=== PATIENT | male | born 1945 | race Caucasian/White ===

== ENCOUNTER 2018-12-28 18:00 | Inpatient (IN) | payer MEDICARE, BC ==
[~2018-12-28] VITALS: Ht 182.9 cm; Wt 132.0 kg
--- OUTSIDE RECORDS SUMMARY | 2018-12-28 18:02 | XMS REPORT | Clinical Summary ---
Author Author [facility] Address Unknown Phone Unavailable Care Team Providers Care Manager Park Name Role Phone Cameron Arellano MD PCP Allergies Comments Active Allergy Reactions Severity Noted Date No Known Drug Allergies 01/24/2016 Medications End Date Status Medication Sig Dispensed Refills Start Date 01/10/2019 Active sulfamethoxazole-trimetho Take 1 tablet 28 tablet 0 prim (BACTRIM DS) 800-160 by mouth 2 9 mg per tablet (two) times a day for 14 days. Active albuterol (VENTOLIN HFA) Inhale 2 18 g 3 90 mcg/actuation inhaler puffs every 6 9 (six) hours as needed for wheezing. 09/30/2018 Discontinued albuterol sulfate (PROAIR Inhale 2 1 each 3 RESPICLICK) 90 puffs 4 6 mcg/actuation aerosol (four) times powdr breath activated a day as needed (wheezing). 09/30/2018 Discontinued azelastine (ASTELIN) 137 1 spray into 30 mL 0 mcg (0.1 %) nasal spray each nostril 7 2 (two) times a day. Use in each nostril as directed 12/27/2018 Discontinued NIFEdipine XL (PROCARDIA Take 1 tablet 30 tablet 1 XL) 30 MG 24 hr tablet (30 mg total) 9 by mouth daily. Active Problems Problem Noted Date Psoriasis 09/30/2018 Benign essential HTN 09/30/2018 Overview: Will resume CCB which he took in the past and monitor. 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 Prostate cancer 06/01/2002 Blanco's syndrome EARLENE (obstructive sleep apnea) Overview: not tolerating CPAP COPD (chronic obstructive pulmonary disease) Back pain Overview: DJD Encounters Care Team Description Date Type Specialty Cameron Arellano MD 12/28/2018 Telephone Internal Medicine Cameron Arellano MD Benign essential HTN; Blanco's syndrome (HCC); Hematuria, unspecified type 12/27/2018 Lab Lab Cameron Arellano MD Hematuria, unspecified type (Primary Dx); Abdominal pain, unspecified abdominal location; Blanco's syndrome (HCC); Benign essential HTN; Other emphysema (HCC) 12/27/2018 Office Visit Internal Medicine Ade Bansal RN 12/27/2018 Telephone Access Ade Bansal RN 12/27/2018 Nurse Triage Access Cameron Arellano MD Benign essential HTN; Polyp of colon, unspecified part of colon, unspecified type; Routine general medical examination at a health care facility 09/30/2018 Lab Lab Cameron Arellano MD Routine general medical examination at a health care facility (Primary Dx); Benign essential HTN; Blanco's syndrome (HCC); Prostate cancer (HCC); Other emphysema (HCC); Polyp of colon, unspecified part of colon, unspecified type; Psoriasis 09/30/2018 Office Visit Internal Medicine after 12/27/2017 Immunizations Name Dates Previously Given Next Due Pneumococcal Conjugate 12/09/2016 13-Valent Family History Medical History Relation Name Comments Alzheimer's disease Mother Relation Name Status Comments Mother Social History Date Tobacco Use Types Packs/Day Years Used Current Every Day Smoker Cigarettes 0.5 50 Smokeless Tobacco: Never Used Comments: 10 cigs a day Alcohol Use Drinks/Week oz/Week Comments No Sex Assigned at Date Recorded Not on file Industry Job Start Date Occupation Not on file Not on file Not on file Travel End Travel History Travel Start No recent travel history available. Last Filed Vital Signs Time Taken Vital Sign Reading 12/27/2018 1:50 PM CDT Blood Pressure 142/79 12/27/2018 1:50 PM CDT Pulse 90 12/27/2018 1:50 PM CDT Temperature 37.1 C (98.7 F) 12/27/2018 1:50 PM CDT Respiratory Rate 16 12/27/2018 1:50 PM CDT Oxygen Saturation 95% - Inhaled Oxygen - Concentration 12/27/2018 1:50 PM CDT Weight 127 kg (280 lb) 12/27/2018 1:50 PM CDT Height 182.9 cm (6') 12/27/2018 1:50 PM CDT Body Mass Index 37.97 Plan of Treatment Care Team Description Date Type Specialty Cameron Arellano MD [address] [facility] [address] [place] [address] [phone] 01/10/2019 Office Visit Internal Medicine Health Maintenance Due Date Last Done Comments SHINGLES VACCINES (#1) 1997 COLONOSCOPY SCREENING 06/01/2016 06/01/2006 65+ PNEUMOCOCCAL VACCINE 12/09/2017 12/09/2016 (2 of 2 - PPSV23) INFLUENZA VACCINE 12/30/2018 Procedures Comments Procedure Name Priority Date/Time Associated Diagnosis URINALYSIS, AUTOMATED Routine 12/27/2018 Hematuria, unspecified WITH MICROSCOPY 2:13 PM CDT type HEPATIC FUNCTION PANEL Routine 12/27/2018 Blanco's syndrome (HCC) 2:13 PM CDT CBC WITH PLATELET AND Routine 12/27/2018 Blanco's syndrome (HCC) DIFFERENTIAL 2:13 PM CDT BASIC METABOLIC PANEL Routine 12/27/2018 Benign essential HTN 2:13 PM CDT URINALYSIS, AUTOMATED Routine 09/30/2018 Benign essential HTN WITH MICROSCOPY 2:07 PM CDT PROSTATE SPECIFIC ANTIGEN Routine 09/30/2018 Routine general medical 2:07 PM CDT examination at a health care facility LIPID PANEL Routine 09/30/2018 Benign essential HTN 2:07 PM CDT HEPATIC FUNCTION PANEL Routine 09/30/2018 Benign essential HTN 2:07 PM CDT CBC WITH PLATELET AND Routine 09/30/2018 Polyp of colon, DIFFERENTIAL 2:07 PM CDT unspecified part of colon, unspecified type BASIC METABOLIC PANEL Routine 09/30/2018 Benign essential HTN 2:07 PM CDT after 12/27/2017 Results * Urinalysis, automated with microscopy (12/27/2018 2:13 PM CDT) Only the most recent of 2 results within the time period is included. Pathologist [facility] Color, UA DARK YELLOW YELLOW [facility] Appearance TURBID (A) CLEAR [facility] Specific 1.017 1.001 - 1.035 [facility] gravity, urine [facility] pH, urine < OR=5.0 5.0 - 8.0 [facility] [place] Glucose, urine NEGATIVE NEGATIVE [facility] Bilirubin, UA NEGATIVE NEGATIVE [facility] Ketones, UA NEGATIVE NEGATIVE [facility] Occult blood, 3+ (A) NEGATIVE [facility] Protein, UA 2+ (A) NEGATIVE [facility] Nitrite, UA POSITIVE (A) NEGATIVE [facility] Leukocyte 3+ (A) NEGATIVE [facility] esterase, UA [facility] [place] WBC, UA > OR=60 (A) < OR=5 /HPF [facility] RBC, UA > OR=60 (A) < OR=2 /HPF [facility] [place] Squamous 0-5 < OR=5 /HPF [facility] epithelial [facility] cells, UA [facility] Bacteria, UA MODERATE (A) NONE SEEN /HPF [facility] [place] Hyaline casts, NONE SEEN NONE SEEN /LPF [facility] UA [facility] [place] Specimen Blood Resulting Agency Comment Performing Organization Information: Site ID: [id number] Name: [facility] Address: [address] [place] [id number] Director: Armin Mcclure Performing Organization Address City/State/Zipcode Phone Number [facility] [place] [address] [place], [place] [id number] * CBC with platelet and differential (12/27/2018 2:13 PM CDT) Only the most recent of 2 results within the time period is included. Pathologist [facility] WBC 11.6 (H) 3.8 - 10.8 [facility] Thousand/uL [facility] [place] RBC 5.78 4.20 - 5.80 [facility] Million/uL [place] [place] HGB 16.3 13.2 - 17.1 g/dL [facility] HCT 49.6 38.5 - 50.0 % [facility] MCV 85.8 80.0 - 100.0 fL [facility] MCH 28.2 27.0 - 33.0 pg [facility] MCHC 32.9 32.0 - 36.0 g/dL [facility] RDW 14.5 11.0 - 15.0 % [facility] [place] Platelet count 246 140 - 400 [facility] Thousand/uL [facility] MPV 9.7 7.5 - 12.5 fL [facility] [place] Neutrophils, 8,665 (H) 1,500 - 7,800 [facility] absolute cells/uL [facility] Lymphocytes, 1,868 850 - 3,900 cells/uL [facility] Monocytes, 974 (H) 200 - 950 cells/uL [facility] absolute [facility] Eosinophils, 35 15 - 500 cells/uL [facility] [place] Basophils, 58 0 - 200 cells/uL [facility] absolute [facility] [place] Neutrophils 74.7 % [facility] Lymphocytes 16.1 % [facility] [place] Monocytes 8.4 % [facility] Eosinophils 0.3 % [facility] [place] Basophils + RC 0.5 % [facility] [place] Specimen Blood Resulting Agency Comment Performing Organization Information: Site ID: [id number] Name: [facility] Address: [address] [place] [phone] Director: Armin Mcclure Performing Organization Address City/State/Zipcode Phone Number [facility] [employer] [address] [address] * Hepatic function panel (12/27/2018 2:13 PM CDT) Only the most recent of 2 results within the time period is included. Protein 6.9 6.1 - 8.1 g/dL [facility] [place] Albumin, S 3.8 3.6 - 5.1 g/dL [facility] Globulin, total 3.1 1.9 - 3.7 g/dL [facility] (calc) [facility] Albumin/globuli 1.2 1.0 - 2.5 (calc) [facility] n ratio [facility] Total bilirubin 1.3 (H) 0.2 - 1.2 mg/dL [facility] [place] Bilirubin 0.3 (H) < OR=0.2 mg/dL [facility] direct [facility] [place] Bilirubin, 1.0 0.2 - 1.2 mg/dL [facility] indirect (calc) [facility] Alkaline 65 40 - 115 U/L [facility] phosphatase [facility] AST 11 10 - 35 U/L [facility] ALT 13 9 - 46 U/L [facility] Specimen Blood Resulting Agency Comment Performing Organization Information: Site ID: [id number] Name: [facility] Address: [address] [place] [phone] Director: Armin Mcclure Performing Organization Address [facility] Cent[facility]ode [place] [address] * Basic metabolic panel (12/27/2018 2:13 PM CDT) Only the most recent of 2 results within the time period is included. Pathologist [facility] Glucose 106 (H) 65 - 99 mg/dL [facility] Comment: DIAGNOSTICS Fasting [place] reference interval For someone without known diabetes, a glucose value between 100 and 125 mg/dL is consistent with prediabetes and should be confirmed with a follow-up test. BUN 20 7 - 25 mg/dL [employer] [facility] Creatinine 1.14 0.70 - 1.18 mg/dL [facility] Comment: DIAGNOSTICS For patients >49 years of age, [place] the reference limit for Creatinine is approximately 13% higher for people identified as -Mongolian. EGFR Non-Afr. 64 > OR=60 [facility] Mongolian mL/min/1.73m2 [facility] [place] EGFR 75 > OR=60 [facility] Mongolian mL/min/1.73m2 [facility] BUN/creatinine NOT APPLICABLE 6 - 22 (calc) [facility] ratio [facility] Sodium 139 135 - 146 mmol/L [employer] [facility] Potassium 4.2 3.5 - 5.3 mmol/L [facility] Chloride 101 98 - 110 mmol/L [employer] [place] CO2 27 20 - 32 mmol/L [employer] [facility] Calcium 9.3 8.6 - 10.3 mg/dL [employer] [facility] Specimen Blood Resulting Agency Comment Performing Organization Information: Site ID: [id number] Name: [facility] Address: [address] [place] [phone] Director: Armin Mcclure Performing Organization Address [facility]/Zipcode Phone Number [facility] [address] [place] [phone] * Prostate specific antigen (09/30/2018 2:07 PM CDT) [facility] PSA <0.1 < OR=4.0 ng/mL [facility] Comment: DIAGNOSTICS The total PSA value from this [facility] assay system is standardized against the WHO standard. The test result will be approximately 20% lower when compared to the equimolar-standardized total PSA (David Rebeka). Comparison of serial PSA results should be interpreted with this fact in mind. This test was performed using the Siemens chemiluminescent method. Values obtained from different assay methods cannot be used interchangeably. PSA levels, regardless of value, should not be interpreted as absolute evidence of the presence or absence of disease. Specimen Blood Resulting Agency Comment Performing Organization Information: Site ID: [id number]: [facility] Address: [address] [place] [id number] Director: Jennifer Arias Performing Organization Address City/State/Zipcode Phone Number [facility] [place] [address] * Lipid panel (09/30/2018 2:07 PM CDT) [facility] Cholesterol, 165 <200 mg/dL [facility] total [facility] HDL cholesterol 43 >40 mg/dL [facility] Triglycerides 149 <150 mg/dL [facility] LDL cholesterol 97 mg/dL (calc) [facility] calculated Comment: DIAGNOSTICS Reference range: <100 [place] Desirable range <100 mg/dL for primary prevention; <70 mg/dL for patients with CHD or diabetic patients with > or=2 CHD risk factors. LDL-C is now calculated using the Dave-Rayray calculation, which is a validated novel method providing better accuracy than the Friedewald equation in the estimation of LDL-C. Dave SS et al. KECIA. 2013;310(19): 3625-2586 (http://education.D.[employer].com/faq/ONF625) Cholesterol/HDL 3.8 <5.0 (calc) [facility] ratio [facility] [place] Non-HDL 122 <130 mg/dL (calc) [facility] cholesterol Comment: DIAGNOSTICS For patients with diabetes [place] plus 1 major ASCVD risk factor, treating to a non-HDL-C goal of <100 mg/dL (LDL-C of <70 mg/dL) is considered a therapeutic option. Specimen Blood Resulting Agency Comment Performing Organization Information: Site ID: [id number] Name: [facility] Address: [address] [place] [phone] Director: Jennifer Arias Performing Organization Address City/State/Zipcode Phone Number [facility] [employer] [place] [address] [place] [phone] after 12/27/2017 Insurance Type Payer Benefit Subscriber ID Effective Phone Address Plan / Dates Group Medicare MEDICARE MEDICARE xxxxxxxxxxx 2004-P [place], PART A AND resent [place] B Indemnity BCBS BCBS xxxxxxxxxxxx 2015-P PAR/TRAD resent PLAN Advance Directives Patient has advance care planning documents on file. For more information, nikunj gallagher contact: Yifan Gallagher [address] [place] [address]
[2018-12-28] MEDS ORDERED: MORPHINE SULFATE 2 MG/ML SYR 1ML IV STA (18:18)
[2018-12-28] MEDS ORDERED: ONDANSETRON HCL INJ 2MG/ML 2ML 2 MG/ML VIAL IV NR (18:30)
[2018-12-28] MEDS ORDERED: SODIUM CHLORIDE 0.9% 1000ML 1,000 ML IV ONE (18:30)
[2018-12-28] MEDS ORDERED: ONDANSETRON HCL INJ 2MG/ML 2ML 2 MG/ML VIAL ONE (19:02)
[2018-12-28] MEDS ORDERED: MORPHINE SULFATE INJ 4 MG/ML INJ 1ML ONE (19:02)
[2018-12-28] MEDS ORDERED: SODIUM CHLORIDE 0.9% 1000ML 1,000 ML ONE (19:02)
--- NOTE | 2018-12-28 19:09 | NUR ---
report to MERLE Frank
--- NOTE | 2018-12-28 19:26 | Diagnostic Imaging Report ---
EXAM: CT of the abdomen and pelvis WITHOUT contrast HISTORY: Fever, low back pain, nausea and vomiting COMPARISON: None available. TECHNIQUE: The abdomen and pelvis were scanned utilizing a multidetector helical scanner. Coronal and sagittal reformats are available. PROTOCOL: Routine IV CONTRAST: None, which limits sensitivity and specificity of evaluation of the soft tissues and vascular structures. ORAL CONTRAST: None, which limits sensitivity and specificity of evaluation of the bowel. RADIATION DOSE: Total DLP: 843.08 mGy*cm Estimated effective dose: (DLP x 0.015 x size factor) Dose modulation, iterative reconstruction, and/or weight based adjustment of the mA/kV was utilized to reduce the radiation dose to as low as reasonably achievable. COMPLICATIONS: None FINDINGS: LOWER THORAX: Unremarkable. HEPATOBILIARY: Diffusely decreased attenuation of the liver. No definite focal hepatic lesions. No biliary ductal dilatation. The gallbladder is unremarkable. SPLEEN: No splenomegaly. PANCREAS: No focal masses or ductal dilatation. Diffuse parenchymal atrophy. ADRENALS: No adrenal nodule. KIDNEYS/URETERS: No hydronephrosis, stones, or solid mass lesion identified. Nonspecific perinephric fat stranding. PELVIC ORGANS/BLADDER: The urinary bladder is predominantly decompressed, which limits evaluation. PERITONEUM / RETROPERITONEUM: No free air or fluid. GI TRACT: On limited evaluation of the gastrointestinal tract, no dilation or wall thickening identified. The appendix appears normal. Scattered colonic diverticuli, most notably the sigmoid colon, without evidence of acute diverticulitis. LYMPH NODES: No pathologically enlarged lymph nodes. VESSELS: Diffuse scattered atherosclerotic vascular calcifications. BONES and JOINTS: No aggressive osseous lesion or acute fracture. SOFT TISSUES: Small fat-containing umbilical hernia, without associated inflammatory changes. IMPRESSION: 1. Mild nonspecific bilateral perinephric fat stranding, correlate for urinary tract infection. 2. Colonic diverticulosis. 3. Hepatic steatosis. Signed by: Dr. Kulwant Avitia D.O., M.M.M. on 12/28/2018 7:22 PM
[2018-12-28] MEDS ORDERED: CEFTRIAXONE SOD 1 GM/NS 50 ML 50 ML IV ONE (20:30)
[2018-12-28] MEDS ORDERED: CEFTRIAXONE SOD 1 GM VIAL ONE (20:40)
[2018-12-28] MEDS ORDERED: SODIUM CHLORIDE 0.9% 100 ML 100 ML ONE (20:40)
--- OUTSIDE RECORDS SUMMARY | 2018-12-28 20:54 | XMS REPORT ---
Author Author [facility] Address Unknown Phone Unavailable Care Team Providers Care Employment Law Attorney Name Role Phone MELISSA KLINE Unavailable Unavailable Problems This patient has no known problems. Allergies, Adverse Reactions, Alerts This patient has no known allergies or adverse reactions. Medications This patient has no known medications. Results Test Description Test Time Test Comments Text Results Atomic Results Result Comments CT ABD/PEL WO CONTRAST-HOPD 2018-12-28 19:16:00 [place] [address] Patient Name: RAYMOND BARRETT MR #: [id number] : 1945 Age/Sex: 73/M Req #: [id number] Adm Physician: Ordered by: MELISSA KLINE MD Report #: [id number] Location: [facility] Room/Bed: Procedure: [id number] HOPD/CT ABD/PEL WO CONTRAST-HOPD Exam Date: 12/28/18 Exam Time: 1853 REPORT STATUS: Signed EXAM: CT of the abdomen and pelvis WITHOUT cont rast HISTORY: Fever, low back pain, nausea and vomiting COMPARISON: None available. TECHNIQUE: The abdomen and pelvis were scanned utilizing a multidetector helical scanner. Coronal and sagittal reformats are available. PROTOCOL: Routine IV CONTRAST: None, which limits sensitivity and specificity of evaluation of the soft tissues and vascular structures. ORAL CONTRAST: None, which limits sensitivity and specificity of evaluation of the bowel. RADIATION DOSE: Total DLP: 843.08 mGy*cm Estimated effective dose: (DLP x 0.015 x size factor) Dose modulation, iterative reconstruction, and/or weight based adjustment of the mA/kV was utilized to reduce the radiation dose to as low as reasonably achievable. COMPLICATIONS: None FINDINGS: LOWER THORAX: Unremarkable. HEPATOBILIARY: Diffusely decreased attenuation of the liver. No definite focal hepatic lesions. No biliary ductal dilatation. The gallbladder is unremarkable. SPLEEN: No splenomegaly. PANCREAS: No focal masses or ductal dilatation. Diffuse parenchymal atrophy. ADRENALS: No adrenal nodule. KIDNEYS/URETERS: No hydronephrosis, stones, or solid mass lesion identified. Nonspecific perinephric fat stranding. PELVIC ORGANS/BLADDER: The urinary bladder is predominantly decompressed, which limits evaluation. PERITONEUM / RETROPERITONEUM: No free air or fluid. GI TRACT: On limited evaluation of the gastrointestinal tract, no dilation or wall thickening identified. The appendix appears normal. Scattered colonic diverticuli, most notably the sigmoid colon, without evidence of acute diverticulitis. LYMPH NODES: No pathologically enlarged lymph nodes. VESSELS: Diffuse scattered atherosclerotic vascular calcifications. BONES and JOINTS: No aggressive osseous lesion or acute fracture. SOFT TISSUES: Small fat- containing umbilical hernia, without associated inflammatory changes. IMPRESSION: 1. Mild nonspecific bilateral perinephric fat stranding, correlate for urinary tract infection. 2. Colonic diverticulosis. 3. Hepatic steatosis. Signed by: Dr. Sivan Avitia D.O., M.M.M. on 12/28/2018 7:22 PM Dictated By: SIVAN AVITIA DO 21 Transcribed By: ABEBA on 12/28/181921 COPY TO: MELISSA KLINE MD
--- OUTSIDE RECORDS SUMMARY | 2018-12-28 20:54 | XMS REPORT | Clinical Summary ---
Author Author [facility] Organization [facility] Address Unknown Phone Unavailable Care Team Providers Care Pipe Layer Helper Name Role Phone Cameron Arellano MD PCP [...] Description Date Type Specialty Cameron Arellano MD [address] [facility] [address] [place] [address] [phone] 01/10/2019 Office Visit Internal Medicine Health Maintenance [...] within the time period is included. Pathologist [facility] Color, UA DARK YELLOW YELLOW [facility] Appearance TURBID (A) CLEAR [facility] Specific 1.017 1.001 - 1.035 [facility] gravity, urine [facility] pH, urine < OR=5.0 5.0 - 8.0 [facility] Glucose, urine NEGATIVE NEGATIVE [facility] Bilirubin, UA NEGATIVE NEGATIVE [facility] Ketones, UA NEGATIVE NEGATIVE [facility] Occult blood, 3+ (A) NEGATIVE [facility] Protein, UA 2+ (A) NEGATIVE [facility] Nitrite, UA POSITIVE (A) NEGATIVE [facility] Leukocyte 3+ (A) NEGATIVE [facility] esterase, UA [facility] WBC, UA > OR=60 (A) < OR=5 /HPF [facility] RBC, UA > OR=60 (A) < OR=2 /HPF [facility] Squamous 0-5 < OR=5 /HPF [facility] epithelial [facility] cells, UA [facility] Bacteria, UA MODERATE (A) NONE SEEN /HPF [facility] Hyaline casts, NONE SEEN NONE SEEN /LPF [facility] UA [facility] Specimen Blood Resulting Agency Comment Performing Organization Information: Site ID: [id number] Name: [facility] Address: [address] [place] [id number] Director: Armin Mcclure Performing Organization Address City/State/Zipcode Phone Number [employer] [facility] [address] [place], [place] [phone] * CBC with platelet and differential (12/27/2018 2:13 PM CDT) Only the most recent of 2 results within the time period is included. Pathologist [facility] WBC 11.6 (H) 3.8 - 10.8 [facility] Thousand/uL [employer] [facility] RBC 5.78 4.20 - 5.80 [facility] Million/uL [employer] [facility] HGB 16.3 13.2 - 17.1 g/dL [facility] HCT 49.6 38.5 - 50.0 % [facility] MCV 85.8 80.0 - 100.0 fL [facility] MCH 28.2 27.0 - 33.0 pg [facility] MCHC 32.9 32.0 - 36.0 g/dL [facility] RDW 14.5 11.0 - 15.0 % [facility] Platelet count 246 140 - 400 [facility] Thousand/uL [facility] MPV 9.7 7.5 - 12.5 fL [facility] Neutrophils, 8,665 (H) 1,500 - 7,800 [facility] absolute cells/uL [facility] Lymphocytes, 1,868 850 - 3,900 cells/uL [facility] Monocytes, 974 (H) 200 - 950 cells/uL [facility] Eosinophils, 35 15 - 500 cells/uL [facility] Basophils, 58 0 - 200 cells/uL [facility] Neutrophils 74.7 % [facility] Lymphocytes 16.1 % [facility] Monocytes 8.4 % [facility] Eosinophils 0.3 % [facility] Basophils + RC 0.5 % [facility] Specimen Blood Resulting Agency Comment Performing Organization Information: Site ID: [id number] Name: [facility] Lab Address: [address] [place] [id number] Director: Armin Mcclure Performing Organization Address City/State/Zipcode Phone Number [facility] [address] [address] * Hepatic function panel (12/27/2018 2:13 PM CDT) Only the most recent of 2 results within the time period is included. Protein 6.9 6.1 - 8.1 g/dL [facility] Albumin, S 3.8 3.6 - 5.1 g/dL [facility] Globulin, total 3.1 1.9 - 3.7 g/dL [facility] (calc) [facility] Albumin/globuli 1.2 1.0 - 2.5 (calc) [facility] n ratio [facility] Total bilirubin 1.3 (H) 0.2 - 1.2 mg/dL [facility] Bilirubin 0.3 (H) < OR=0.2 mg/dL [facility] direct [facility] Bilirubin, 1.0 0.2 - 1.2 mg/dL [facility] indirect (calc) [facility] Alkaline 65 40 - 115 U/L [facility] phosphatase [facility] AST 11 10 - 35 U/L [facility] ALT 13 9 - 46 U/L [facility] Specimen Blood Resulting Agency Comment Performing Organization Information: Site ID: RGA Name: [facility] Address: [address] [place] [phone] Director: Armin Mcclure Performing Organization Address [facility] Phone Number [employer] [address] * Basic metabolic panel (12/27/2018 2:13 PM CDT) Only the most recent of 2 results within the time period is included. Pathologist [facility] Glucose 106 (H) 65 - 99 mg/dL [facility] Comment: DIAGNOSTICS Fasting N[facility] reference interval For someone without known diabetes, a glucose value between 100 and 125 mg/dL is consistent with prediabetes and should be confirmed with a follow-up test. BUN 20 7 - 25 mg/dL [employer] [facility] Creatinine 1.14 0.70 - 1.18 mg/dL [facility] Comment: DIAGNOSTICS For patients >49 years of age, [facility] the reference limit for Creatinine is approximately 13% higher for people identified as -Polish. EGFR Non-Afr. 64 > OR=60 [facility] Polish mL/min/1.73m2 [facility] EGFR 75 > OR=60 [facility] Polish mL/min/1.73m2 [facility] BUN/creatinine NOT APPLICABLE 6 - 22 (calc) [facility] ratio [facility] Sodium 139 135 - 146 mmol/L [employer] [facility] Potassium 4.2 3.5 - 5.3 mmol/L [facility] Chloride 101 98 - 110 mmol/L [facility] [facility] CO2 27 20 - 32 mmol/L [facility] Calcium 9.3 8.6 - 10.3 mg/dL [facility] Specimen Blood Resulting Agency Comment Performing Organization Information: Site ID: RGA Name: [facility] Address: [address] [place] [phone] Director: Armin Mcclure Performing Organization Address [facility]/Zipcode Phone Number [employer] [facility] [address] [place] [phone] * Prostate specific antigen (09/30/2018 2:07 PM CDT) [facility] PSA <0.1 < OR=4.0 ng/mL [facility] Comment: DIAGNOSTICS The total PSA value from this [facility] assay system is standardized against the WHO [...] Organization Information: Site ID: EMANUEL Name: [facility] Address: [address] [place] [id number] Director: Jennifer Arias Performing Organization Address City/State/Zipcode Phone Number [facility] [place] [address] * Lipid panel (09/30/2018 2:07 PM CDT) [facility] Cholesterol, 165 <200 mg/dL [facility] total [facility] HDL cholesterol 43 >40 mg/dL [facility] Triglycerides 149 <150 mg/dL [facility] LDL cholesterol 97 mg/dL (calc) [facility] calculated Comment: DIAGNOSTICS Reference range: <100 [facility] Desirable range <100 mg/dL for primary prevention; <70 mg/dL for patients with CHD or diabetic patients with > or=2 CHD risk factors. LDL-C is now calculated using the Dave-Rayray calculation, which is a validated novel method providing better accuracy than the Friedewald equation in the estimation of LDL-C. Dave SS et al. KECIA. 2013;310(19): 1739-7385 (http://education.[employer].com/faq/NNT238) Cholesterol/HDL 3.8 <5.0 (calc) [facility] ratio [facility]AGNO[facility] Non-HDL 122 <130 mg/dL (calc) [facility] cholesterol Comment: DIAGNOSTICS For patients with diabetes [facility] plus 1 major ASCVD risk factor, treating to a non-HDL-C goal of <100 mg/dL (LDL-C of <70 mg/dL) is considered a therapeutic option. Specimen Blood Resulting Agency Comment Performing Organization Information: Site ID: RGA Name: [facility] Address: [address] [place] [phone] Director: Jennifer Arias Performing Organization Address City/State/Zipcode Phone Number [facility] [facility] [address] [place] [phone] after 12/27/2017 Insurance Type Payer Benefit Subscriber ID Effective Phone Address Plan / Dates Group Medicare MEDICARE MEDICARE xxxxxxxxxxx 2004-P [place], PART A AND resent [place] B Indemnity BCBS BCBS xxxxxxxxxxxx 2015-P PAR/TRAD resent PLAN Advance Directives Patient has advance care planning documents on file. For more information, nikunj gallagher contact: Yifan Gallagher [address] [place] [address]
[2018-12-28] MEDS: SODIUM CHLORIDE 0.9% 1000ML 1,000 ML IV SCH (21:13)
[2018-12-28 23:16] VITALS: BP 136/66
--- NOTE | 2018-12-28 23:17 | NUR ---
Dr. Taveras paged at this time for medication orders.
--- NOTE | 2018-12-28 23:19 | NUR ---
Call returned from Dr. Taveras, New orders for pain and nausea medication received at this time.
[2018-12-29] VITALS (9 sets, daily range): BP systolic 136–160; BP diastolic 66–72
[2018-12-29] MEDS: MORPHINE SULFATE INJ 4 MG/ML INJ 1ML IV PRN ×4 (00:05→20:05)
[2018-12-29] MEDS: ONDANSETRON HCL INJ 2MG/ML 2ML 2 MG/ML VIAL IV PRN ×2 (00:05→04:43)
[2018-12-29 05:44] LABS: BASOPHILS % 0.1 % (0.0-1.0); EOSINOPHILS % 0.1 % (0.0-6.0); HEMATOCRIT 41.3 % (38.2-49.6); HEMOGLOBIN 13.6 g/dL (14.0-18.0); LYMPHOCYTES # (AUTO) 0.6 (1.0-3.2); LYMPHOCYTES % 6.6 % (18.0-39.1); MEAN CORPUSCULAR HEMOGLOBIN 28.9 pg (28-32); MEAN CORPUSCULAR HGB CONC 32.9 g/dL (31-35); MEAN CORPUSCULAR VOLUME 87.7 fL (81-99); MONOCYTES # (AUTO) 0.7 (0.2-0.8); NEUTROPHILS # (AUTO) 8.2 (2.1-6.9); NEUTROPHILS % 85.7 % (38.7-80.0); PLATELET COUNT 172 x10e3/uL (140-360); RED BLOOD COUNT 4.71 x10e6/uL (4.3-5.7); RED CELL DISTRIBUTION WIDTH 14.1 % (11.7-14.4)
[2018-12-29 06:04] LABS: ANION GAP 16.1 mmol/L (8-16); BLOOD UREA NITROGEN 17 mg/dL (7-26); BUN/CREATININE RATIO 16 (6-25); CALCIUM 8.3 mg/dL (8.4-10.2); CARBON DIOXIDE 22 mmol/L (22-29); CHLORIDE 99 mmol/L (98-107); CREATININE, SERUM 1.07 mg/dL (0.72-1.25); EST GLOMERULAR FILTRATION RATE > 60 ML/MIN (60-); GLUCOSE 126 mg/dL (74-118); POTASSIUM 4.1 mmol/L (3.5-5.1); SODIUM 133 mmol/L (136-145)
--- NOTE | 2018-12-29 07:00 | NUR ---
Report given to MERLE Pulido dayshift nurse.
[2018-12-29] MEDS: SODIUM CHLORIDE 0.9% 1000ML 1,000 ML IV SCH ×4 (07:14→23:30)
--- NOTE | 2018-12-29 07:23 | NUR ---
paged md barlow for orders on additional prn for nausea . prn zofran not working awaiting for call back
[2018-12-29] MEDS: PROMETHAZINE HCL 25 MG TAB PO PRN ×2 (08:48→20:05)
--- NOTE | 2018-12-29 19:10 | NUR ---
Beside report and walking rounds complete. Pt resting in bed and no apparent distress. All safety measures ensured and pt call fraire near.
[2018-12-29 19:59] LABS: BILIRUBIN,URINE NEGATIVE (NEGATIVE); CLARITY,URINE SL CLOUDY (CLEAR); COLOR,URINE YELLOW (YELLOW); KETONES,URINE NEGATIVE (NEGATIVE); LEUKOCYTE ESTERASE ,URINE NEGATIVE (NEGATIVE); NITRITE,URINE NEGATIVE (NEGATIVE); PROTEIN,URINE DIPSTICK TRACE (NEGATIVE); URINE UROBILINOGEN 0.2 mg/dL (0.2 - 1)
[2018-12-29 20:16] LABS: BACTERIA,URINE MODERATE /HPF
[2018-12-29] MEDS ORDERED: CEFTRIAXONE SOD 1 GM/NS 50 ML 50 ML IV SCH (20:30)
--- NOTE | 2018-12-29 20:58 | History and Physical ---
HISTORY OF PRESENT ILLNESS: Mark Porter is a 73-year-old male with past medical history positive for prostate cancer, Blanco granulomatosis, history of hypertension, obesity, and psoriasis. The patient came with vomiting and blood in the urine and burning of urination and fever. REVIEW OF SYSTEMS: CARDIOVASCULAR: No chest pain or palpitation. RESPIRATORY: No shortness of breath. No cough. GASTROINTESTINAL: No nausea. No vomiting. No abdominal pain. No diarrhea. No constipation. No blood in the stools. GENITOURINARY: He has been having blood in the urine for few days. It has resolved right now. ALLERGIES: HE IS NOT ALLERGIC TO ANY MEDICATION. SOCIAL HISTORY: He smokes. He does not drink. PAST MEDICAL HISTORY: COPD, prostate cancer, Blanco granulomatosis, and psoriasis. PHYSICAL EXAMINATION: HEART: Showed regular rhythm. Normal S1 and S2 sound. LUNGS: Clear bilaterally. ABDOMEN: Soft. EXTREMITIES: Show no evidence of cyanosis or hematoma. Scaly lesion on elbows and heels. LABORATORY DATA: On the BMP; sodium 133, potassium 4.1, chloride 99, CO2 22, BUN 17, creatinine 1.07, and glucose 126. On the CBC; white blood count 9.56, hemoglobin 13.6, hematocrit 41.3, and platelet count of 172,000. Urine culture and blood culture still pending. Urinalysis still pending. IMPRESSION: 1. Urinary tract infection, rule out pyelonephritis. 2. Hematuria. 3. Blanco granulomatosis. 4. Vomiting. 5. Psoriasis. 6. Obesity. 7. Chronic obstructive pulmonary disease. PLAN OF TREATMENT: Continue ceftriaxone 2 g IV daily, normal saline at 125 mL an hour, Tylenol 650 mg q.4 hours as needed for pain or fever, morphine 4 mg IV q.4 hours as needed, Zofran 4 mg IV q.4 hours as needed, and promethazine 25 mg q.4 hours as needed. We are going to get a consult with Dr. Siddiqui for Urology due to the hematuria that he has. I am going to give DuoNeb q.4 hours as needed for shortness of breath. MD ZAYDA Echols/MODL /[id number]
[2018-12-29] MEDS: CEFTRIAXONE SOD 1 GM/NS 50 ML 50 ML IV SCH (21:47)
[2018-12-30] VITALS (8 sets, daily range): BP systolic 128–176; BP diastolic 60–79
[2018-12-30] MEDS: MORPHINE SULFATE INJ 4 MG/ML INJ 1ML IV PRN ×5 (00:07→22:45)
[2018-12-30] MEDS: PROMETHAZINE HCL 25 MG TAB PO PRN ×3 (00:07→18:21)
[2018-12-30] MEDS: SODIUM CHLORIDE 0.9% 1000ML 1,000 ML IV SCH ×2 (00:53→08:52)
--- NOTE | 2018-12-30 01:25 | Consultation ---
DATE OF CONSULTATION: 12/29/2018 Urology Consultation REASON FOR CONSULTATION: Hematuria and pyelonephritis. HISTORY OF PRESENT ILLNESS: Mark Porter is a 73-year-old man with longstanding urological history. In 2002, the patient underwent radical retropubic prostatectomy in the [facility] by Dr. Matthew Agarwal. The patient since then has had both urge and stress type urinary incontinence. He declined an artificial urinary sphincter. The patient came in with fever and was found to have hematuria and urinary tract infection. Urological consultation was sought for diagnosis of pyelonephritis. The patient has also had some nausea and vomiting as well. The patient denies any previous urolithiasis. He last saw urologist number of years ago, that urologist was Dr. Samuel Tovar, who did a cystoscopy and told the patient that there were some sutures that were crossed and some suture material that need to be removed. The patient has felt a little bit better since he has been hospitalized, but still has malaise. PAST MEDICAL AND SURGICAL HISTORY: 1. Obesity. 2. Chronic smoker. 3. Blanco's granulomatosis. 4. Psoriasis. 5. COPD. 6. Hypertension. CURRENT MEDICATIONS: Please refer to the MAR. ALLERGIES: NONE KNOWN. 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 He has supportive family at the bedside. The patient quit smoking a week ago. Denies current smoking, ethanol, or drug use. FAMILY HISTORY: Noncontributory to the active urological problems. REVIEW OF SYSTEMS: Discussed as above in the history of present illness and past medical history, otherwise negative for all systems. PHYSICAL EXAMINATION: GENERAL: Morbidly obese male, lying in bed, in no apparent distress. He is currently afebrile. VITAL SIGNS: Currently stable. ABDOMEN: Obese, soft, nondistended, and nontender without costovertebral angle tenderness. There is an infraumbilical midline scar. GENITOURINARY: Testes descended bilaterally. Testes and epididymides bilaterally nontender and unremarkable. The patient has normal circumcised male phallus with normal meatus without any lesion. Digital rectal examination is deferred at the present time. For the remaining physical examination systems, please refer to the admission history and physical in the chart as well as the ERT sheet. LABORATORY STUDIES: CT scan of the abdomen and pelvis showed nonspecific bilateral perinephric fat stranding, but is otherwise unremarkable. The patient's urine blood cultures are pending. White blood cell count is 9560, hemoglobin 13.6, and platelets are 172,000. The patient's sodium is low at 133, creatinine is normal at 1.07, calcium is low at 8.3. No urinalysis is in the computer, but the patient has urine and blood cultures that are pending. ASSESSMENT: 1. Prostate cancer, status post radical retropubic prostatectomy. 2. Mixed type urinary incontinence. 3. Hematuria. 4. Urinary tract infection. 5. Nausea and vomiting. 6. Anemia. 7. Hyponatremia. 8. Hypocalcemia. 9. Fevers. PLAN: 1. I am awaiting the final urine culture and sensitivities as well as the blood cultures. We can make further determination as to what infection the patient may have. 2. Ongoing urological followup is must both for his prostate cancer as well as management of his incontinence. 3. Due to the patient's hematuria, cystoscopic examination at some point will be warranted. 4. I defer the hematological and electrolyte abnormalities to the admitting physician. Thank you very much for involving us in the care of your patient. We will be happy to follow him along with you as well as an outpatient. Guillermo Siddiqui MD [place]/[facility] /[id number]
[2018-12-30] MEDS: ONDANSETRON HCL INJ 2MG/ML 2ML 2 MG/ML VIAL IV PRN (06:38)
--- NOTE | 2018-12-30 07:05 | NUR ---
PT RESTING IN BED AA0X3. PT IS ON 02 3L TOLERATING WELL PT IS ON IV FLUIDS WITH NS AT 125CC.HR SITE IS CLEAN AND DRY WILL CONTINUE TO MONITOR PT CLOSELY SIDE RAILSX2, BED WHEELS LOCKED, CALL LIGHT IS WITHIN EASY REACH INSTRUCTED TO CALL FOR ASSISTANCE IF NEEDED
[2018-12-30] MEDS: AMLODIPINE BESYLATE 5 MG TAB PO SCH (09:06)
--- NOTE | 2018-12-30 11:37 | Progress Note ---
DATE: Internal Medicine Progress Note SUBJECTIVE: The patient complains of nausea today. PHYSICAL EXAMINATION: VITAL SIGNS: Blood pressure 152/67, temperature 99.7, heart rate 77 per minute, respiratory rate is 20 per minute, oxygen saturation 93%. ABDOMEN: . No tenderness. EXTREMITIES: Show no evidence of cyanosis or hematoma. LABORATORY DATA: On the blood work, we have BMP; sodium 133, potassium 4.1, chloride 99, CO2 22, BUN 17, creatinine 1.07, glucose 126. On CBC, white count 9.56, hemoglobin 13.6, hematocrit 41.3, platelet count 172,000. Urine culture still pending. Blood culture still pending. FINAL IMPRESSION: 1. Pyelonephritis. 2. Hematuria. 3. Vomiting. 4. Blanco granulomatosis. 5. Prostate cancer. 6. Psoriasis. 7. Obesity. PLAN OF TREATMENT: Urologist Dr. Siddiqui is seeing the patient for hematuria. We are going to continue with ceftriaxone 2 g IV daily, normal saline 125 mL an hours, Tylenol 650 mg q.4 hours as needed, morphine 4 mg IV q.4 hours as needed, Zofran 4 mg IV q.4 hours as needed, promethazine 25 mg q.4 hours as needed. MD ZAYDA Echols/[facility]BERTA /[id number]
[2018-12-30] MEDS: ACETAMINOPHEN 325 MG TAB PO PRN ×2 (20:08→20:44)
[2018-12-30] MEDS: CEFTRIAXONE SOD 1 GM/NS 50 ML 50 ML IV SCH (21:30)
[2018-12-31] VITALS (8 sets, daily range): BP systolic 138–174; BP diastolic 61–88
[2018-12-31] MEDS: MORPHINE SULFATE INJ 4 MG/ML INJ 1ML IV PRN ×4 (04:14→20:02)
[2018-12-31] MEDS: SODIUM CHLORIDE 0.9% 1000ML 1,000 ML IV SCH ×3 (04:48→18:15)
[2018-12-31 05:57] LABS: BASOPHILS % 0.3 % (0.0-1.0); EOSINOPHILS % 0.4 % (0.0-6.0); HEMATOCRIT 42.6 % (38.2-49.6); HEMOGLOBIN 13.3 g/dL (14.0-18.0); LYMPHOCYTES # (AUTO) 0.8 (1.0-3.2); LYMPHOCYTES % 11.1 % (18.0-39.1); MEAN CORPUSCULAR HEMOGLOBIN 28.2 pg (28-32); MEAN CORPUSCULAR HGB CONC 31.2 g/dL (31-35); MEAN CORPUSCULAR VOLUME 90.4 fL (81-99); MONOCYTES % 14.8 % (4.4-11.3); NEUTROPHILS # (AUTO) 5.1 (2.1-6.9); NEUTROPHILS % 72.8 % (38.7-80.0); PLATELET COUNT 151 x10e3/uL (140-360); RED BLOOD COUNT 4.71 x10e6/uL (4.3-5.7); RED CELL DISTRIBUTION WIDTH 14.1 % (11.7-14.4)
[2018-12-31 06:16] LABS: ANION GAP 13.1 mmol/L (8-16); BLOOD UREA NITROGEN 14 mg/dL (7-26); BUN/CREATININE RATIO 15 (6-25); CALCIUM 8.4 mg/dL (8.4-10.2); CARBON DIOXIDE 30 mmol/L (22-29); CHLORIDE 97 mmol/L (98-107); CREATININE, SERUM 0.92 mg/dL (0.72-1.25); EST GLOMERULAR FILTRATION RATE > 60 ML/MIN (60-); GLUCOSE 115 mg/dL (74-118); POTASSIUM 4.1 mmol/L (3.5-5.1); SODIUM 136 mmol/L (136-145)
--- NOTE | 2018-12-31 07:10 | NUR ---
Received patient mid fowlers position, side rails upx2, call light within reach. AAOx3 to time, person, place.Respirations even and unlabored. SOB with exertion. O2 2.5L NC. Instructed to use call light for assistance. Voiced understanding.
[2018-12-31] MEDS: PROMETHAZINE HCL 25 MG TAB PO PRN ×3 (09:06→20:02)
[2018-12-31] MEDS: AMLODIPINE BESYLATE 5 MG TAB PO SCH (09:06)
[2018-12-31] MEDS: ONDANSETRON HCL INJ 2MG/ML 2ML 2 MG/ML VIAL IV PRN ×2 (11:43→18:30)
--- NOTE | 2018-12-31 15:02 | NUR ---
Notified of [facility]
[2018-12-31] MEDS ORDERED: LACTULOSE SYRUP 20 GM/30 ML UDC PO PRN (15:30)
[2018-12-31] MEDS: LUBIPROSTONE 24 MCG CAP PO SCH (15:54)
[2018-12-31] MEDS ORDERED: PREDNISONE 20 MG TAB PO ONE (16:15)
--- NOTE | 2018-12-31 16:45 | Progress Note ---
DATE: Internal Medicine Progress Note SUBJECTIVE: The patient is complaining of constipation. He is having low-grade fever today. PHYSICAL EXAMINATION: VITAL SIGNS: Blood pressure 174/71, temperature 97.6, heart rate 71 per minute, respiratory rate 18 per minute, oxygen saturation 95%. HEART: Showed regular rhythm. Normal S1, S2 sound. LUNGS: Clear bilaterally. ABDOMEN: Soft. LABORATORY DATA: On the BMP; sodium 136, potassium 4.1, chloride 97, CO2 of 30, BUN 14, creatinine 0.82, glucose 115. On CBC, white blood count 7.01, hemoglobin 13.3, hematocrit 42.6, platelet count 151,000. FINAL IMPRESSION: 1. Pyelonephritis. 2. Hematuria. 3. Vomiting. 4. Blanco granulomatosis. 5. Prostate cancer. 6. Psoriasis. 7. Obesity. 8. Constipation. PLAN OF TREATMENT: We are going to consult Dr. Frankel for Infectious Diseases because the patient keeps running low grade fever. Continue ceftriaxone 2 g IV daily. We are going to discontinue IV fluids. Continue Tylenol 650 mg IV p.o. q.4 hours as needed for pain or fever, morphine 4 mg IV q.4 hours as needed for severe pain, Zofran 4 mg IV q.4 hours as needed, promethazine 25 mg q.4 hours as needed, amlodipine 5 mg daily. We are going to start the patient on lisinopril 10 mg daily due to hypertension. The patient is going to be started on Amitiza 24 mcg p.o. twice a day, lactulose 20 g q.6 hours as needed for constipation. MD ZAYDA Echols/ALBERTA /[id number]
--- NOTE | 2018-12-31 19:00 | NUR ---
RECEIVED PATIENT IN REPORT. PATIENT RESTING IN BED WITH FAMILY MEMBERS AT BEDSIDE. PAIN REPORTED 8/10, WILL ADMINISTER PAIN MEDS WHEN IT IS TIME. PSORIASIS NOTED TO ELBOWS. O2@2.5L VIA NC. NO SOB OF REPORTED. BED LOCKED IN LOWEST POSITION, SIDE RAILS UPX2, CALL LIGHT IN REACH.
--- NOTE | 2018-12-31 19:00 | NUR ---
Patient wheezing. Paged . Awaiting for call back. Resting in bed, side rails upx2, call light within reach, family at bedside. Bedside Report given to oncoming nurse of patient's status. Addendum: 12/31/18 at 1939 by PASTOR ZHU RN per answering service [facility]
--- NOTE | 2018-12-31 20:00 | Consultation ---
DATE OF CONSULTATION: REASON FOR CONSULTATION: Fever. HISTORY OF PRESENT ILLNESS: This patient is a 73-year-old white male, history of prostate cancer, Blanco granulomatosis disease, hypertension, obesity, and psoriasis. The patient comes in with vomiting and blood in the urine. The patient was on antibiotic. However, he continued to have fever. I am asked to see him. The patient was given Rocephin originally. The patient was seen by Dr. Guillermo Siddiqui. The patient, who has history of 2002 underwent radical retropubic prostatectomy in [facility]. Since then, he had both urge and stress type urinary incontinence. He declined artificial urinary sphincter. He is coming now with fever and hematuria. There was concern about UTI. The patient to have history of obesity, Blanco disease, psoriasis, COPD, and hypertension. PAST SURGICAL HISTORY: As above. ALLERGIES: NKA. SOCIAL HISTORY: Used to smoke. REVIEW OF SYSTEMS: HEENT: There is no headache, visual changes, or hearing changes. GI: There is no nausea, no vomiting, no diarrhea. CARDIAC: There is no arrhythmia. NEURO: Seizure activity. SKIN: There is no other rash. LABORATORY DATA: Blood cultures negative. Urine cultures negative. White count 9.5, hemoglobin of 13, and hematocrit 41. Sodium 133, potassium 4.1, and creatinine 1.07. MEDICATIONS: The patient is currently on Zofran, Norvasc, Phenergan, Rocephin, and lisinopril. PHYSICAL EXAMINATION: GENERAL: He is currently alert and oriented, does not seem to be in acute distress. VITAL SIGNS: Stable. Currently afebrile, but he had 101.2. HEENT: Not icteric. NECK: Supple. CHEST: Clear. HEART: S1 and S2. No S3, S4, or murmur. ABDOMEN: Soft. Bowel sounds present. No tenderness. EXTREMITIES: No edema. IMPRESSION AND PLAN: 1. Fever. I think it has to do with his Blanco disease. I do not think this is an infection. I think hematuria also has to do with Blanco disease. I would recommend start him on steroid and follow up with Rheumatology. 2. Other medical problems seemed to be stable. Discussed with Urology. Discussed with Internal Medicine. Further recommendations to follow. MD GORAN Smyth/ALBERTA /[id number]
[2018-12-31] MEDS: CEFTRIAXONE SOD 1 GM/NS 50 ML 50 ML IV SCH (22:15)
[2019-01-01] VITALS (7 sets, daily range): BP systolic 117–150; BP diastolic 60–87
[2019-01-01] MEDS: ONDANSETRON HCL INJ 2MG/ML 2ML 2 MG/ML VIAL IV PRN ×4 (00:10→21:12)
[2019-01-01] MEDS: MORPHINE SULFATE INJ 4 MG/ML INJ 1ML IV PRN ×5 (00:10→21:12)
[2019-01-01] MEDS: SODIUM CHLORIDE 0.9% 1000ML 1,000 ML IV SCH (02:45)
[2019-01-01] MEDS: AMLODIPINE BESYLATE 5 MG TAB PO SCH (09:44)
[2019-01-01] MEDS: PREDNISONE 20 MG TAB PO SCH (09:44)
[2019-01-01] MEDS: LUBIPROSTONE 24 MCG CAP PO SCH ×3 (09:44→16:47)
[2019-01-01] MEDS: LISINOPRIL 10 MG TAB PO SCH (09:45)
[2019-01-01] MEDS ORDERED: FUROSEMIDE INJ 10 MG/ML 4 ML VIAL IV ONE (11:45)
[2019-01-01 12:00] LABS: HEMATOCRIT 40.1 % (38.2-49.6); HEMOGLOBIN 13.1 g/dL (14.0-18.0); LYMPHOCYTES # (AUTO) 0.7 (1.0-3.2); LYMPHOCYTES % 11.4 % (18.0-39.1); MEAN CORPUSCULAR HEMOGLOBIN 28.6 pg (28-32); MEAN CORPUSCULAR HGB CONC 32.7 g/dL (31-35); MEAN CORPUSCULAR VOLUME 87.6 fL (81-99); MONOCYTES # (AUTO) 0.8 (0.2-0.8); MONOCYTES % 12.3 % (4.4-11.3); NEUTROPHILS # (AUTO) 4.9 (2.1-6.9); PLATELET COUNT 170 x10e3/uL (140-360); RED BLOOD COUNT 4.58 x10e6/uL (4.3-5.7); RED CELL DISTRIBUTION WIDTH 13.7 % (11.7-14.4)
[2019-01-01 12:01] LABS: ALANINE AMINOTRANSFERASE 36 IU/L (0-55); ALBUMIN 2.3 g/dL (3.5-5.0); ALBUMIN/GLOBULIN RATIO 0.7 (0.8-2.0); ALKALINE PHOSPHATASE 52 IU/L (40-150); ANION GAP 12.9 mmol/L (8-16); BLOOD UREA NITROGEN 10 mg/dL (7-26); BUN/CREATININE RATIO 13 (6-25); CALCIUM 8.5 mg/dL (8.4-10.2); CARBON DIOXIDE 30 mmol/L (22-29); CHLORIDE 98 mmol/L (98-107); EST GLOMERULAR FILTRATION RATE > 60 ML/MIN (60-); GLUCOSE 138 mg/dL (74-118); POTASSIUM 3.9 mmol/L (3.5-5.1); SODIUM 137 mmol/L (136-145)
[2019-01-01] MEDS: ALBUTEROL/IPRATROPIUM 3 ML NEB NEB SCH ×2 (15:44→19:55)
--- NOTE | 2019-01-01 16:49 | NUR ---
Pt will need a RW for improved balance when walking upon D/C. Addendum: 01/01/19 at 1650 by Rajeev Cardona PT Amended: Links added.
--- NOTE | 2019-01-01 17:06 | Diagnostic Imaging Report ---
Examination: Single AP view of the chest. COMPARISON: None. INDICATION: Pyelonephritis DISCUSSION: Lines/tubes: None. Lungs: Left lung atelectasis. Pleura: Possible small left effusion. Heart and mediastinum: The heart and the mediastinum are unremarkable. Bones and soft tissues: No acute bony abnormalities. IMPRESSION: 1. Left lung atelectasis with possible small effusion Signed by: Dr. Franck Ramos M.D. on 01/01/2019 5:03 PM
--- NOTE | 2019-01-01 19:00 | NUR ---
RECEIVED PATIENT IN REPORT. PATIENT RESTING IN BED. O2 @ 2.5L VIA NC. NO PAIN REPORTED. NO S&S OF DISTRESS NOTED. BED LOCKED IN LOWEST POSITION, SIDE RAILS UPX2, CALL LIGHT IN REACH.
[2019-01-01] MEDS: CEFTRIAXONE SOD 1 GM/NS 50 ML 50 ML IV SCH (21:08)
[2019-01-02] VITALS (7 sets, daily range): BP systolic 130–146; BP diastolic 60–76
[2019-01-02] MEDS: ALBUTEROL/IPRATROPIUM 3 ML NEB NEB SCH ×4 (00:24→19:06)
--- NOTE | 2019-01-02 03:00 | NUR ---
PATIENT RESTING IN BED. BREATHING EVEN AND NON-LABORED. BED LOCKED IN LOWEST POSITION, SIDE RAILS UPX2, CALL LIGHT IN REACH.
[2019-01-02 06:29] LABS: BASOPHILS % 0.1 % (0.0-1.0); HEMATOCRIT 40.1 % (38.2-49.6); HEMOGLOBIN 12.8 g/dL (14.0-18.0); LYMPHOCYTES # (AUTO) 0.9 (1.0-3.2); LYMPHOCYTES % 11.8 % (18.0-39.1); MEAN CORPUSCULAR HEMOGLOBIN 28.6 pg (28-32); MEAN CORPUSCULAR HGB CONC 31.9 g/dL (31-35); MEAN CORPUSCULAR VOLUME 89.5 fL (81-99); MONOCYTES # (AUTO) 0.8 (0.2-0.8); MONOCYTES % 10.5 % (4.4-11.3); NEUTROPHILS % 77.1 % (38.7-80.0); PLATELET COUNT 206 x10e3/uL (140-360); RED BLOOD COUNT 4.48 x10e6/uL (4.3-5.7); RED CELL DISTRIBUTION WIDTH 13.8 % (11.7-14.4)
[2019-01-02 07:07] LABS: ALANINE AMINOTRANSFERASE 36 IU/L (0-55); ALBUMIN 2.3 g/dL (3.5-5.0); ALBUMIN/GLOBULIN RATIO 0.7 (0.8-2.0); ALKALINE PHOSPHATASE 57 IU/L (40-150); ANION GAP 12.5 mmol/L (8-16); BLOOD UREA NITROGEN 17 mg/dL (7-26); BUN/CREATININE RATIO 18 (6-25); CALCIUM 8.5 mg/dL (8.4-10.2); CARBON DIOXIDE 34 mmol/L (22-29); CHLORIDE 97 mmol/L (98-107); CREATININE, SERUM 0.93 mg/dL (0.72-1.25); EST GLOMERULAR FILTRATION RATE > 60 ML/MIN (60-); GLUCOSE 155 mg/dL (74-118); POTASSIUM 3.5 mmol/L (3.5-5.1); SODIUM 140 mmol/L (136-145)
[2019-01-02] MEDS: PREDNISONE 20 MG TAB PO SCH (09:13)
[2019-01-02] MEDS: PROMETHAZINE HCL 25 MG TAB PO PRN (09:14)
[2019-01-02] MEDS: AMLODIPINE BESYLATE 5 MG TAB PO SCH (09:14)
[2019-01-02] MEDS: LISINOPRIL 10 MG TAB PO SCH (09:14)
[2019-01-02] MEDS: LUBIPROSTONE 24 MCG CAP PO SCH ×2 (09:14→17:59)
[2019-01-02] MEDS: MORPHINE SULFATE INJ 4 MG/ML INJ 1ML IV PRN ×3 (09:15→23:41)
[2019-01-02] MEDS ORDERED: POTASSIUM CHLORIDE 10MEQ EA PO ONE ×2 (11:00→16:30)
[2019-01-02] MEDS ORDERED: FUROSEMIDE INJ 10 MG/ML 4 ML VIAL IV ONE ×2 (11:00→16:30)
[2019-01-02] MEDS: ONDANSETRON HCL INJ 2MG/ML 2ML 2 MG/ML VIAL IV PRN (17:59)
--- NOTE | 2019-01-02 19:03 | NUR ---
Bedside report received from MERLE Monsalve. Pt is resting comfortably in bed. Pt and son present at bedside. Pt appears to be in no distress. Bed is in low locked position and call light is in reach of pt. Will continue to monitor.
[2019-01-02] MEDS: CEFTRIAXONE SOD 1 GM/NS 50 ML 50 ML IV SCH (21:00)
[2019-01-03] VITALS (9 sets, daily range): BP systolic 122–168; BP diastolic 59–78
[2019-01-03] MEDS: ALBUTEROL/IPRATROPIUM 3 ML NEB NEB SCH ×5 (00:45→19:00)
[2019-01-03] MEDS: MORPHINE SULFATE INJ 4 MG/ML INJ 1ML IV PRN ×4 (05:18→21:42)
[2019-01-03 06:18] LABS: BASOPHILS % 0.2 % (0.0-1.0); EOSINOPHILS % 0.1 % (0.0-6.0); HEMATOCRIT 40.6 % (38.2-49.6); HEMOGLOBIN 12.9 g/dL (14.0-18.0); LYMPHOCYTES % 11.2 % (18.0-39.1); MEAN CORPUSCULAR HGB CONC 31.8 g/dL (31-35); MEAN CORPUSCULAR VOLUME 88.1 fL (81-99); MONOCYTES # (AUTO) 0.8 (0.2-0.8); MONOCYTES % 8.9 % (4.4-11.3); NEUTROPHILS # (AUTO) 6.9 (2.1-6.9); NEUTROPHILS % 78.8 % (38.7-80.0); PLATELET COUNT 249 x10e3/uL (140-360); RED BLOOD COUNT 4.61 x10e6/uL (4.3-5.7); RED CELL DISTRIBUTION WIDTH 14.1 % (11.7-14.4)
[2019-01-03 06:44] LABS: ANION GAP 13.4 mmol/L (8-16); BLOOD UREA NITROGEN 19 mg/dL (7-26); BUN/CREATININE RATIO 21 (6-25); CALCIUM 8.2 mg/dL (8.4-10.2); CARBON DIOXIDE 33 mmol/L (22-29); CHLORIDE 96 mmol/L (98-107); CREATININE, SERUM 0.92 mg/dL (0.72-1.25); EST GLOMERULAR FILTRATION RATE > 60 ML/MIN (60-); GLUCOSE 174 mg/dL (74-118); POTASSIUM 3.4 mmol/L (3.5-5.1); SODIUM 139 mmol/L (136-145)
--- NOTE | 2019-01-03 07:06 | NUR ---
BEDSIDE REPORT GIVEN TO MERLE DILLON AT THIS TIME. PT RESTING COMFORTABLY IN BED. CALL LIGHT IS IN REACH OF PT.
--- NOTE | 2019-01-03 07:32 | NUR ---
RECEIVED PATIENT AWAKE RESTING IN BED NO SIGNS OF DISTRESS. BED LOW, WHEELS LOCKED, SIDE RAILS X2. CALL LIGHT IN REACH WILL CONTINUE TO MONITOR PATIENT.
[2019-01-03] MEDS: LUBIPROSTONE 24 MCG CAP PO SCH ×2 (08:14→16:55)
[2019-01-03] MEDS: AMLODIPINE BESYLATE 5 MG TAB PO SCH (08:14)
[2019-01-03] MEDS: PREDNISONE 20 MG TAB PO SCH (08:14)
[2019-01-03] MEDS: LISINOPRIL 10 MG TAB PO SCH (08:15)
[2019-01-03] MEDS ORDERED: POTASSIUM CHLORIDE 10MEQ EA PO NR (09:00)
--- NOTE | 2019-01-03 09:05 | NUR ---
PATIENT A/O X3, EVEN RESPIRATIONS ON 3LNC. PATIENT AMBULATES WITH WALKER AND ASSISTANCE. RIGHT AC 20 GAUGE IV SL. IV INTACT AND PATENT. PSORIASIS TO ELBOWS. VITAL SIGNS STABLE AT THIS TIME. MORPHINE NEEDED FOR FLANK PAIN. CALL LIGHT IN REACH WILL CONTINUE TO MONITOR PATIENT.
--- NOTE | 2019-01-03 11:36 | Progress Note ---
DATE: Internal Medicine Progress Note SUBJECTIVE: The patient is doing well. PHYSICAL EXAMINATION: VITAL SIGNS: Blood pressure is 158/71, temperature 96.1, heart rate 72 per minute, respiratory rate 20 per minute, and oxygen saturation 95%. HEART: Showed regular rhythm. Normal S1, S2 sound. LUNGS: Clear bilaterally. ABDOMEN: Soft. LABORATORY DATA: On the BMP; sodium 139, potassium 3.4, chloride 96, CO2 33, BUN 18, creatinine 0.82, glucose 174. On the CBC; white blood count 8.77, hemoglobin 12.9, hematocrit 40.6, platelet count 249,000. AST 19, ALT 36, total bilirubin 0.3, alkaline phosphatase 57.. IMPRESSION: 1. Acute pyelonephritis. 2. Blanco granulomatosis. 3. History of prostate cancer. 4. Mild anemia. 5. Hypokalemia. 6. Hematuria. 7. Obesity. 8. Narcotic induced constipation. PLAN OF TREATMENT: 1. Continue albuterol and Atrovent q.6 hours. 2. Ceftriaxone 2 g IV daily. 3. Tylenol 650 mg p.o. q.4 hours as needed. 4. Morphine 4 mg IV q.4 hours as needed. 5. Lactulose 20 g q.6 hours as needed. 6. Zofran 4 mg IV q.4 hours as needed. 7. Amitiza 24 mcg p.o. twice a day for narcotic induced constipation. 8. Promethazine 25 mg p.o. q.6 hours as needed. 9. Lisinopril 10 mg daily. 10. Amlodipine 5 mg daily for hypertension. 11. Prednisone 60 mg daily because of the Blanco granulomatosis. 12. Tentative discharge for tomorrow. MD ZAYDA Echols/ALBERTA /[id number]
[2019-01-03 12:44] LABS: COLOR,URINE YELLOW (YELLOW)
[2019-01-03 12:45] LABS: BILIRUBIN,URINE NEGATIVE (NEGATIVE); CLARITY,URINE SL CLOUDY (CLEAR); KETONES,URINE NEGATIVE (NEGATIVE); LEUKOCYTE ESTERASE ,URINE NEGATIVE (NEGATIVE); NITRITE,URINE NEGATIVE (NEGATIVE); PROTEIN,URINE DIPSTICK NEGATIVE (NEGATIVE); URINE UROBILINOGEN 2 mg/dL (0.2 - 1)
[2019-01-03 12:46] LABS: BACTERIA,URINE FEW /HPF; EPITHELIAL CELLS,URINE FEW /LPF; RBC,URINE 0-5 /HPF (0-5)
--- NOTE | 2019-01-03 12:49 | NUR ---
PT WILL NEED WALKER AND PERHAPS HOME 02 FOR PLANNED DC HOME TOMORROW HOME 02 EVAL BEING REPEATED TODAY CM TO FOLLOW IMM EXPLAINED TO PT , SIGNED BY PT AND PLACED ON CHART COPY TO PT
--- NOTE | 2019-01-03 16:02 | NUR ---
Nutrition LOS Note RD Recommendation(s) for Physician / Nutrition Prescription: continue with diet as prescribed Plan of Care: Patient has been screened and assessed for nutrition risk. At this time, the patient does not pose any nutrition risk. No further nutrition intervention is warranted at this time. Will re-evaluate if consulted by medical staff. Nutrition reason for involvement: LOS Primary Dx: Acute pyelonephritis. PMH: prostate cancer, Blanco granulomatosis disease, hypertension, obesity, and psoriasis Ht: 72in Wt: 296.44lb BMI: 40.2kg/m2 IBW: 178lb +/- 10% RD Assessment: (01/03) 73yo M, who was admitted for acute pyelonephritis. Visited pt in the room. Pt reported good appetite with 50-100% recorded meal intake. Pt denied any nausea or vomiting. Pt complained of constipation; lactulose to be given PRN. Pt denied any chewing or swallowing difficulty. No recent weight loss reported. Current diet is appropriate and adequate. Current diet: cardiac diet Malnutrition Evaluation (01/03/2019) The patient does not meet criteria for a specified degree of malnutrition at this time. Will re-evaluate at follow-up as appropriate. Diet Education Needs Assessment: Diet education not indicated. Nutrition Care Level: Low Signed by Isabel Carrillo, MS, RD, LD
--- NOTE | 2019-01-03 19:24 | Consultation ---
DATE OF CONSULTATION: 01/03/2019 REASON FOR CONSULTATION: History of Blanco's disease. HISTORY OF PRESENT ILLNESS: A 73-year-old white gentleman, who presented with fever, some instability in gait and noticed blood in his urine. He is currently comfortable, states feels much better. Denies any weakness, dizziness. Denies any fever and chills. Workup here include initial urinalysis showing specific gravity 1.025, pH 5.5 with RBC 11 to 20, WBC none. Urine blood 3+ positive. Had a CBC done, which showed a white count initially of 7, hemoglobin 13.3 with a platelet count of 151. It is up to 249, now with a hemoglobin 12.9. He denies any drug allergies. History of underlying COPD, history of sleep apnea. History of Anatoly's granulomatosis diagnosed in 2002. He has switched to several rheumatologists in the past. He has not seen one in the last two years. His last flare-up of Blanco's was few years ago. History of prostate cancer status post total prostatectomy in 2002, history of psoriasis, history of arthritis, history of hypertension. He has history of latent TB. Initially, had a chest x-ray upon admission, it shows left lung atelectasis with possible small effusion and an abdominal CT pelvis was done. Official report shows mild nonspecific bilateral perinephric fat stranding, correlate for urinary tract infection, colonic diverticulosis and hepatic steatosis. SOCIAL HISTORY: Does not smoke or drink. FAMILY HISTORY: Significant for hypertension. PHYSICAL EXAMINATION: GENERAL: Awake, alert, lying supine, in no apparent distress with a blood pressure 158/71, pulse rate 77, afebrile. HEAD AND NECK: Cornea clear. Oral mucosa moist. LUNGS: End-expiratory rhonchi scattered bilaterally. No rales. HEART: S1 and S2 audible. ABDOMEN: Soft, nontender. Obese abdomen. EXTREMITIES: Lower extremity, no edema and no rash noted. CURRENT MEDICATIONS: Prednisone 60 mg daily. He is on Amitiza 24 mcg p.o. b.i.d., lisinopril 10 mg daily. He is on amlodipine 5 mg daily, albuterol and Atrovent nebulizer, antibiotics which has been stopped. IMPRESSION AND PLAN: kidney function. I suspect he had urine tract infection. Doubt we are dealing with reactivation of Blanco's. We will repeat urinalysis. I looked at the urine microscopy myself, there were occasional RBC, plenty of WBC, no casts, occasional hyaline casts, epithelial cells. No tubular cells noted. We will obtain c-ANCA and p-ANCA levels although they are not good indicators for reactivation, but please see orders. MD DIANELYS Sen/JACKIEL /[id number]
[2019-01-04] MEDS: MORPHINE SULFATE INJ 4 MG/ML INJ 1ML IV PRN ×3 (02:07→10:23)
[2019-01-04 04:00] VITALS: BP 176/81
[2019-01-04 06:36] LABS: ANION GAP 13.1 mmol/L (8-16); BLOOD UREA NITROGEN 19 mg/dL (7-26); BUN/CREATININE RATIO 22 (6-25); CALCIUM 8.9 mg/dL (8.4-10.2); CARBON DIOXIDE 29 mmol/L (22-29); CHLORIDE 98 mmol/L (98-107); CREATININE, SERUM 0.88 mg/dL (0.72-1.25); EST GLOMERULAR FILTRATION RATE > 60 ML/MIN (60-); GLUCOSE 90 mg/dL (74-118); POTASSIUM 4.1 mmol/L (3.5-5.1); SODIUM 136 mmol/L (136-145)
[2019-01-04] MEDS: ALBUTEROL/IPRATROPIUM 3 ML NEB NEB SCH (06:40)
--- NOTE | 2019-01-04 06:52 | NUR ---
walking rounds done and report received. POC discussed. Patient is up in chair in NAD. patient instructed to call for assistance as needed and verbalized understanding. call fraire within reach.
[2019-01-04 07:44] VITALS: BP 168/74
[2019-01-04] MEDS: PREDNISONE 20 MG TAB PO SCH (08:37)
[2019-01-04] MEDS: LISINOPRIL 10 MG TAB PO SCH (08:37)
[2019-01-04] MEDS: LUBIPROSTONE 24 MCG CAP PO SCH (08:37)
[2019-01-04] MEDS: AMLODIPINE BESYLATE 5 MG TAB PO SCH (08:37)
[2019-01-04 10:35] VITALS: BP 168/74
[2019-01-04] MEDS ORDERED: NORVASC5 MG PO (10:40)
[2019-01-04] MEDS ORDERED: LISINOPRIL10 MG PO (10:41)
[2019-01-04] MEDS ORDERED: PREDNISONE20 MG PO (10:41)
--- NOTE | 2019-01-04 11:06 | NUR ---
written discharge instruction and prescriptions provided. IV dc'd, cath intact and small dressing applied. Patient verbalized understanding. Waiting on son to order picker
--- NOTE | 2019-01-04 11:44 | NUR ---
Patient refused to wait on walker. Son here to pick patient up. Patient wheeled to front of hospital with all belongings in stable condition.
--- NOTE | 2019-01-04 11:48 | Discharge Summary ---
HOSPITAL COURSE: Mark Porter is a 73-year-old male with past medical history positive for Blanco granulomatosis, came here with fever, burning of urination. He was found to have possible UTI. He was started empirically on antibiotic, but a urine culture came back negative. Blood culture came back negative also. He has no fever. The patient was seen by Dr. Frankel, Infectious Disease specialist. He was running some fever. The fever went away. His impression that was a Blanco granulomatosis relapse, started on prednisone. The patient is doing better. He is going home today on prednisone. PHYSICAL EXAMINATION: HEART: Showed regular rhythm. Normal S1, S2 sound. LUNGS: Clear bilaterally. ABDOMEN: Soft. EXTREMITIES: Show no evidence of cyanosis or hematoma. VITAL SIGNS: Blood pressure 168/74, temperature 96 degrees, heart rate 76 per minute, respiratory rate is 20 per minute, and oxygen saturation 99%. MICROBIOLOGY: Blood culture and urine culture negative. LABORATORY DATA: On the CBC, we have a white blood count 8.77, hemoglobin 12.9, hematocrit 40.6, platelet count 249,000. On the BMP; sodium 136, potassium 4.1, chloride 88, CO2 29, BUN 19, creatinine 0.88, glucose 90. IMPRESSION: 1. Urinary tract infection, which has resolved. 2. Episode of hematuria. 3. Prostate cancer, status post surgery for Blanco granulomatosis. PLAN OF TREATMENT: 1. The patient wants to continue lisinopril, which is going to be increased to 20 mg daily due to hypertension. 2. Continue Norvasc 5 mg daily. 3. Continue prednisone. I am going to start with 60 mg daily and wean down to 20 mg daily. 4. Continue with stool softeners. 5. The patient is going to be seeing Dr. Siddiqui, Urology in a month because of the hematuria. He is going to be referred to Rheumatology also because of Blanco granulomatosis also. MD ZAYDA Echols/ALBERTA /[id number]
== END 2019-01-04 11:14 | disposition home or self-care (01) | DRG 690 ==
LOC: FSED 18:00 → ERHOLD 20:25 → MED/SURG 21:23
PROVIDERS: ADMIT Internal Medicine; ATTEND Internal Medicine
DX: N10 Acute pyelonephritis (principal); M31.30 Wegener's granulomatosis without renal involvement; E87.1 Hypo-osmolality and hyponatremia; R31.9 Hematuria, unspecified; L40.9 Psoriasis, unspecified; Z68.39 Body mass index [BMI] 39.0-39.9, adult; J44.9 Chronic obstructive pulmonary disease, unspecified; C61 Malignant neoplasm of prostate; R11.2 Nausea with vomiting, unspecified; E83.51 Hypocalcemia; I10 Essential (primary) hypertension; E66.9 Obesity, unspecified; F17.210 Nicotine dependence, cigarettes, uncomplicated; N39.46 Mixed incontinence; D64.9 Anemia, unspecified; R76.11 Nonspecific reaction to tuberculin skin test without active tuberculosis; G89.29 Other chronic pain; K59.03 Drug induced constipation; T40.605A Adverse effect of unspecified narcotics, initial encounter; E87.6 Hypokalemia
CPT/HCPCS: 36415; 71045; 74176; 80048; 80053; 81001; 81003; 83605; 83735; 83880; 85025; 85651; 86021; 86140; 87040; 87086; 93306; 94640; 96374; 96375; 97139; 99283; J0696; J1940; J2270; J2405; J7030; J7512